=== PATIENT | female | born 1995 | race Caucasian/White ===

== ENCOUNTER 2016-08-10 13:46 | Inpatient (IN) | payer BC ==
--- OUTSIDE RECORDS SUMMARY | 2016-08-10 13:49 | XMS REPORT | Continuity of Care Document ---
:1995 Author Organization [facility] ([facility]) Address [address] [place] [address] Phone [phone] Care Team Providers Name Role Phone [phone], Need To Check Primary Care Provider Unavailable Source Comments This disclosure is being made pursuant to the Care Everywhere program, applicable federal and state laws, and may not contain all informaitonavailable regarding this patient.[facility] ([facility]) Active Allergies and Adverse Reactions Allergen Noted Date Severity Reactions Comments Ceftibuten 03/10/2016 Low Rash Nitrofurantoin Monohyd/M-Cryst 03/10/2016 Medium Nausea & Vomiting Current Medications Prescription Sig. Disp. Refills Start Date End Date Status amoxicillin 500 mg capsule Take 500 mg by Active mouth every 12 hours. PNV#102/IRON/FA/DHA/LUTEIN Take by mouth Active (SIMILAC PO) daily. Active Problems Not on file Social History Tobacco Use Types Packs/Day Years Used Date Never Smoker Smokeless Tobacco: Never Used Alcohol Use Drinks/Week oz/Week Comments No Plan of Care Health Maintenance Due Date Last Done Comments Hepatitis B Vaccine (1 of 3 - Primary Series) 1995 HPV Vaccine (1 of 3 - Female/Unknown 3 Dose Series) 12/08/2006 Tdap Vaccine 12/08/2006 Meningococcal Vaccine (1 of 1) 2011 Lipid Disorder Screening 12/08/2013 MMR Vaccine 12/08/2013 Td Vaccine 12/08/2013 Varicella Vaccine (1 of 2 - Adult - No Evidence of 12/08/2013 Immunity) Influenza Vaccine: Seasonal (#1) 01/04/2016 Results from Last 3 Months Not on file
[2016-08-10] MEDS ORDERED: LIDOCAINE HCL 50 ML VIAL PERI PRN (13:55)
[2016-08-10] MEDS ORDERED: OXYTOCIN/DEXTROSE 5%-WATER 30 UNITS/500 ML BAG IV ONE ×3 (13:55→20:39)
[2016-08-10] MEDS ORDERED: RINGERS SOLUTION,LACTATED 1,000 ML IV PRN (13:55)
[2016-08-10] MEDS ORDERED: DEXTROSE 5%-LACTATED RINGERS 1,000 ML IV PRN (13:55)
[2016-08-10] MEDS ORDERED: BUTORPHANOL TARTRATE 2 MG/ML VIAL IV PRN (13:55)
[2016-08-10] MEDS ORDERED: ONDANSETRON HCL/PF 2 MG/ML VIAL IV PRN ×2 (13:55→14:56)
[2016-08-10] MEDS ORDERED: RINGERS SOLUTION,LACTATED 1,000 ML IV ONE (13:55)
[2016-08-10] MEDS ORDERED: PENICILLIN G POTASSIUM 5 MILLIONUNT in DEXTROSE 5 % IN WATER 100 ML IV ONE ×2 (14:30)
[2016-08-10] MEDS ORDERED: BUPIVACAINE HCL/0.9 % NACL/PF 250 ML EP PRN (14:56)
[2016-08-10] MEDS ORDERED: NALOXONE HCL 1 MG/1 ML SYRG IV PRN (14:56)
[2016-08-10] MEDS ORDERED: fentaNYL CITRATE/PF 50 MCG/ML AMPUL IT SCH (15:00)
--- NOTE | 2016-08-10 15:28 | OR ---
Anesthesia Procedure Note - Anesthesia Procedure Note Narrative: Vital Signs - Last Taken Temp 36.5 C 04/07/16 15:07 Pulse Resp BP 108/69 04/07/16 15:07 Pulse Ox 08/10/16 15:27 ANESTHESIA PROCEDURE NOTE Date of Procedure: 08/10/2016 Time of procedure: 1510. Performed by: López King CRNA Skilled Nursing Facilities Professional: None. Preprocedure diagnosis: Active labor. Post procedure diagnosis: Same. Procedure: Insertion of labor epidural. Indications: The patient is a 20 -year-old prima para female in active labor requesting labor epidural for pain management. Findings: See below. Details of the procedure: The patient was placed in a sitting position. Back was prepped with DuraPrep. Patient was then draped in a sterile fashion. Lidocaine 1% was infiltrated to the skin and subcutaneous tissues at the level of the L3 4 interspace. The epidural space was identified using a 18-gauge Tuohy needle with [id number] technique. 20 mcg fentanyl was given intrathecally using a 27 ga. spinal needle. Epidural catheter was inserted without difficulty. Negative test dose was elicited using 5 mL of 1.5% preservative-free lidocaine plus epinephrine 1 200,000. The epidural catheter was then taped and secured in place. EBL: Minimal. Fluids: N/A. Specimen: N/A. Post procedure condition: The patient tolerated the procedure well. No complications were noted. Thank you for this consultation. Coello CRNA
[2016-08-10] MEDS ORDERED: PENICILLIN G POTASSIUM 2.5 MILLIONUNT in DEXTROSE 5 % IN WATER 100 ML IV SCH ×2 (18:30)
[2016-08-10] MEDS ORDERED: BENZOCAINE/MENTHOL 81 SPRAY CAN TP PRN (20:39)
[2016-08-10] MEDS ORDERED: GLYCERIN/WITCH HAZEL LEAF 40 APPL BOX TP PRN (20:39)
[2016-08-10] MEDS ORDERED: HYDROCORTISONE 30 APPL TUBE TP PRN (20:39)
[2016-08-10] MEDS ORDERED: SENNOSIDES 8.6 MG TABLET PO PRN (20:39)
[2016-08-10] MEDS ORDERED: oxyCODONE HCL/ACETAMINOPHEN 1 TAB TABLET PO PRN (20:39)
[2016-08-10] MEDS ORDERED: BISACODYL 10 MG SUPP.RECT RC PRN (20:39)
--- NOTE | 2016-08-10 20:58 | OR ---
Operative Report - Dictated Report Narrative: Spontaneous Vaginal Delivery Viable female with APGARS of 8 at 1 min and 9 at 5 min. Delivered at 2020. Presentation was CARINA. No nuchal cord noted. The anterior and posterior shoulder delivered without any difficulty followed by the remainder of the baby. The baby was then placed on the maternal abdomen. The cord was clamped and cut after 90 seconds. Weight: 3646 grams, 8lbs 0.6oz Placenta was delivered spontaneously and intact. Left labial abrasion and vaginal abrasion. Estimated blood loss: 150 ml Mother and baby tolerated delivery well. History for Definition: * The number of deliveries resulting in a live the patient experienced prior to current hospitalization * The previous delivery of live twins or any live multiple gestation is considered one live event. *If primagravida or nulliparous is documented select zero for the number of previous live births. Live Events: 0
[2016-08-10] MEDS: DOCUSATE SODIUM 100 MG CAPSULE PO SCH (21:44)
[2016-08-10] MEDS: IBUPROFEN 800 MG TABLET PO PRN (21:44)
[2016-08-11] MEDS: oxyCODONE HCL/ACETAMINOPHEN 1 TAB TABLET PO PRN ×2 (02:40→11:53)
[2016-08-11] MEDS ORDERED: RHO(D) IMMUNE GLOBULIN 300 MCG DISP.SYRIN IM ONE (09:00)
[2016-08-11] MEDS: DOCUSATE SODIUM 100 MG CAPSULE PO SCH ×2 (09:49→20:17)
--- NOTE | 2016-08-11 11:03 | PN ---
Progess Note - Interim Narrative: 08/11/16 11:02 progress note Subjective: The patient is doing well. She is ambulating, voiding, tolerating by mouth. She has minimal pain and moderate lochia. Objective: General: No acute distress Abdomen: Soft, nontender, fundus is firm just below the umbilicus Extremities: minimal edema, nontender to palpation Assessment and plan: day 1 Feeding: Bottle Pain: Controlled with by mouth medication Routine care.
[2016-08-11] MEDS: IBUPROFEN 800 MG TABLET PO PRN ×2 (11:53→20:17)
[2016-08-11 18:59] VITALS: BP 117/67
[2016-08-12] MEDS: IBUPROFEN 800 MG TABLET PO PRN (07:05)
--- NOTE | 2016-08-12 09:02 | PN ---
Progess Note - Interim Narrative: 08/12/16 09:01 progress note Subjective: The patient is doing well. She is ambulating, voiding, tolerating by mouth. She has minimal pain and moderate lochia. Objective: General: No acute distress Abdomen: Soft, nontender, fundus is firm just below the umbilicus Extremities: minimal edema, nontender to palpation Assessment and plan: day 2 Feeding: Bottle Pain: Controlled with by mouth medication control: Undecided Routine care.
== END 2016-08-12 13:15 | disposition home or self-care (01) | DRG 775 ==
LOC: OB 13:46
PROVIDERS: ADMIT Obstetrics & Gynecology Gynecologic Oncology; ATTEND Obstetrics & Gynecology Gynecologic Oncology
PROC: 10E0XZZ Delivery of Products of Conception, External Approach (ICD-10-PCS; principal; 2016-08-10)
PROC: 4A1HXCZ Monitoring of Products of Conception, Cardiac Rate, External Approach (ICD-10-PCS; 2016-08-10)
PROC: 3E0S3CZ (ICD-10-PCS; 2016-08-10)
DX: O99.824 Streptococcus B carrier state complicating childbirth (principal); J45.909 Unspecified asthma, uncomplicated; Z3A.40 40 weeks gestation of pregnancy; Z37.0 Single live birth
CPT/HCPCS: 59025; 85460; J2790